=== PATIENT | male | born 1960 | race Caucasian/White ===

== ENCOUNTER 2018-08-01 12:42 | Day surgery (SDC) | payer OTHER ==
[2018-08-01 08:10] VITALS: BMI 27.0
[2018-08-01 14:21] VITALS: TEMP 97.5
[2018-08-01 15:36] VITALS: BP 122/78; PULSE 73
--- NOTE | 2018-08-04 17:45 | PATH ---
Surgical Pathology Report Patient Name: ATILIO MONTEIRO [facility]. Rec. #: [id number] /Age/Gender: 1960 (Age: 58) / M Account: [id number] Location: ASU-ENDOSCOPY Taken: 08/01/2018 Received: 08/02/2018 Reported: 08/04/2018 Physicians: Jose Mora D.O. Specimen(s) Received A: BX BODY B: BX GE JUNCTION POLYP C: BX TRANSVERSE COLON POLYP D: BX DESCENDING COLON POLYP E: RECTAL POLYP Clinical History Pernicious anemia Postoperative diagnosis: Reflux esophagitis, gastric and GE junction polyps, diverticulosis, hemorrhoids Final Diagnosis A. GASTRIC BODY POLYP, BIOPSY: FUNDIC GLAND POLYP. IMMUNOSTAIN FOR H. PYLORI IS NEGATIVE. B. GE JUNCTION POLYP, BIOPSY: HYPERPLASTIC POLYP. IMMUNOSTAIN FOR H. PYLORI IS NEGATIVE. C. TRANSVERSE COLON POLYP X 3, POLYPECTOMY: TUBULAR ADENOMA, MULTIPLE FRAGMENTS. D. DESCENDING COLON POLYP, POLYPECTOMY: TUBULAR ADENOMA. E. RECTAL POLYP, POLYPECTOMY: HYPERPLASTIC POLYP. Electronically Signed Veda Jones M.D. Gross Description A. Received in formalin, labeled "polyps gastric body of stomach" are 4 hager, irregular portions of soft tissue ranging from 0.2-0.4 cm. in greatest dimension. The specimens are submitted in toto in one cassette. B. Received in formalin, labeled "polyps at the GE junction" are 2 hager, irregular portions of soft tissue measuring 0.2 and 0.4 cm. in greatest dimension. The specimens are submitted in toto in one cassette. C. Received in formalin, labeled "transverse colon polyps" are 4 hager, irregular portions of soft tissue ranging from 0.2-0.4 cm. in greatest dimension. The specimens are submitted in toto in one cassette. D. Received in formalin, labeled "descending colon polyp" are 3 hager, irregular portions of soft tissue ranging from 0.1-0.4 cm. in greatest dimension. The specimens are submitted in toto in one cassette. E. Received in formalin, labeled "polyp rectum" is a hager, irregular portion of soft tissue measuring 0.4 cm. in greatest dimension. The specimen is submitted in toto in one cassette. 08/02/2018 [facility]08/02/2018
== END 2018-08-01 15:36 | disposition home or self-care (01) ==
LOC: JASU-ENDO 12:42
PROVIDERS: ATTEND Internal Medicine Gastroenterology
PROC: 0DBP8ZX Excision of Rectum, Via Natural or Artificial Opening Endoscopic, Diagnostic (ICD-10-PCS; 2018-08-01)
PROC: 0DBL8ZX Excision of Transverse Colon, Via Natural or Artificial Opening Endoscopic, Diagnostic (ICD-10-PCS; 2018-08-01)
PROC: 0DBN8ZX Excision of Sigmoid Colon, Via Natural or Artificial Opening Endoscopic, Diagnostic (ICD-10-PCS; 2018-08-01)
PROC: 0DB68ZX Excision of Stomach, Via Natural or Artificial Opening Endoscopic, Diagnostic (ICD-10-PCS; 2018-08-01)
PROC: 0DBM8ZX Excision of Descending Colon, Via Natural or Artificial Opening Endoscopic, Diagnostic (ICD-10-PCS; principal; 2018-08-01 14:00)
DX: Z51.11 Encounter for antineoplastic chemotherapy (principal); K62.1 Rectal polyp; K64.8 Other hemorrhoids; K57.30 Diverticulosis of large intestine without perforation or abscess without bleeding; D12.4 Benign neoplasm of descending colon; D12.3 Benign neoplasm of transverse colon; K21.0 Gastro-esophageal reflux disease with esophagitis; K31.7 Polyp of stomach and duodenum; D51.0 Vitamin B12 deficiency anemia due to intrinsic factor deficiency
CPT/HCPCS: 88305-TC; 88342-TC

== ENCOUNTER 2021-07-21 04:46 | Day surgery (SDC) | payer OTHER ==
[2021-07-16 16:35] VITALS: BMI 27.3
[2021-07-21 09:48] VITALS: TEMP 97.7
[2021-07-21 11:51] VITALS: BP 113/58; PULSE 85
== END 2021-07-21 11:26 | disposition home or self-care (01) ==
LOC: JASU-ENDO 04:46
PROVIDERS: ATTEND Internal Medicine Gastroenterology
PROC: 0DBK8ZX Excision of Ascending Colon, Via Natural or Artificial Opening Endoscopic, Diagnostic (ICD-10-PCS; 2021-07-21)
PROC: 0DBL8ZX Excision of Transverse Colon, Via Natural or Artificial Opening Endoscopic, Diagnostic (ICD-10-PCS; principal; 2021-07-21 09:15)
DX: Z12.11 Encounter for screening for malignant neoplasm of colon (principal); Z86.010 Personal history of colon polyps; K57.30 Diverticulosis of large intestine without perforation or abscess without bleeding; K64.8 Other hemorrhoids; D12.2 Benign neoplasm of ascending colon; D12.3 Benign neoplasm of transverse colon
CPT/HCPCS: 88305-TC

== ENCOUNTER 2024-09-17 04:50 | Day surgery (SDC) | payer BC, OTHER ==
[2024-09-13 11:32] VITALS: BMI 29.7
[2024-09-17 10:02] VITALS: TEMP 97.5
[2024-09-17 10:36] VITALS: BP 116/64; PULSE 77; RESP 18
== END 2024-09-17 11:15 | disposition home or self-care (01) ==
LOC: JASU-ENDO 04:50
PROVIDERS: ATTEND Internal Medicine Gastroenterology
PROC: 0DBL8ZX Excision of Transverse Colon, Via Natural or Artificial Opening Endoscopic, Diagnostic (ICD-10-PCS; 2024-09-17)
PROC: 0DBK8ZX Excision of Ascending Colon, Via Natural or Artificial Opening Endoscopic, Diagnostic (ICD-10-PCS; principal; 2024-09-17 08:45)
DX: Z12.11 Encounter for screening for malignant neoplasm of colon (principal); D12.3 Benign neoplasm of transverse colon; D12.2 Benign neoplasm of ascending colon; K64.8 Other hemorrhoids; K57.30 Diverticulosis of large intestine without perforation or abscess without bleeding; K63.89 Other specified diseases of intestine; Z86.0100 Personal history of colon polyps, unspecified
CPT/HCPCS: 88305-TC